=== PATIENT | female | born 1995 | race Caucasian/White ===

== ENCOUNTER 2017-02-28 11:25 | Emergency (ER) | payer OTHER ==
[~2017-02-28] VITALS: Ht 152.4 cm; Wt 58.0 kg
[2017-02-28 11:48] VITALS: Ht 152.4 cm; Wt 58.0 kg
[2017-02-28 14:58] VITALS: BP 129/85
== END 2017-02-28 14:58 | disposition home or self-care (01) ==
LOC: ED 11:25
DX: H66.91 Otitis media, unspecified, right ear (principal); J02.9 Acute pharyngitis, unspecified; J45.909 Unspecified asthma, uncomplicated

== ENCOUNTER 2017-09-17 12:16 | Emergency (ER) | payer OTHER ==
[~2017-09-17] VITALS: Ht 152.4 cm; Wt 60.3 kg
[2017-09-17 12:56] VITALS: Ht 152.4 cm; Wt 60.3 kg
[2017-09-17 14:34] LABS: microscopic required? YES; urine erythrocyte NEGATIVE (NEGATIVE)
[2017-09-17 15:27] VITALS: BP 109/72
== END 2017-09-17 15:27 | disposition home or self-care (01) ==
LOC: ED 12:16
PROVIDERS: Emergency Medicine
DX: R11.10 Vomiting, unspecified (principal); R19.7 Diarrhea, unspecified; N39.0 Urinary tract infection, site not specified; J45.909 Unspecified asthma, uncomplicated
CPT/HCPCS: Q0162

== ENCOUNTER 2017-10-03 09:09 | Emergency (ER) | payer OTHER ==
[~2017-10-03] VITALS: Ht 152.4 cm; Wt 58.1 kg
[2017-10-03 09:32] VITALS: BP 117/79; Ht 152.4 cm; Wt 58.1 kg
== END 2017-10-03 11:10 | disposition home or self-care (01) ==
LOC: ED 09:09
DX: B34.9 Viral infection, unspecified (principal); J45.909 Unspecified asthma, uncomplicated
CPT/HCPCS: J7620

== ENCOUNTER 2017-10-18 19:22 | Emergency (ER) | payer OTHER ==
[~2017-10-18] VITALS: Ht 152.4 cm; Wt 59.0 kg
[2017-10-18 19:30] VITALS: Ht 152.4 cm; Wt 59.0 kg
[2017-10-18 20:01] LABS: UA SPECIFIC GRAVITY 1.025 (1.005-1.035); microscopic required? YES; urine erythrocyte 3+ (NEGATIVE)
[2017-10-19 00:39] VITALS: BP 110/64
== END 2017-10-19 00:39 | disposition home or self-care (01) ==
LOC: ED 19:22
PROVIDERS: Specialist
DX: N30.01 Acute cystitis with hematuria (principal); J45.909 Unspecified asthma, uncomplicated
CPT/HCPCS: J1885; J2270; J2405; Q0092

== ENCOUNTER 2017-11-23 11:50 | Emergency (ER) | payer OTHER ==
[~2017-11-23] VITALS: Ht 152.4 cm; Wt 57.2 kg
[2017-11-23 11:56] VITALS: Ht 152.4 cm; Wt 57.2 kg
[2017-11-23 13:43] VITALS: BP 120/79
== END 2017-11-23 13:43 | disposition home or self-care (01) ==
LOC: ED 11:50
DX: R51 Headache (principal); R11.2 Nausea with vomiting, unspecified; J45.909 Unspecified asthma, uncomplicated
CPT/HCPCS: J1100; J1885; J2270; J2765; J7030

== ENCOUNTER 2017-12-16 17:21 | Emergency (ER) | payer OTHER ==
[2017-12-16 17:24] VITALS: Ht 152.4 cm
[2017-12-16 18:22] VITALS: BP 116/70
== END 2017-12-16 18:22 | disposition home or self-care (01) ==
LOC: ED 17:21
DX: J03.90 Acute tonsillitis, unspecified (principal); A38.9 Scarlet fever, uncomplicated; J45.909 Unspecified asthma, uncomplicated
CPT/HCPCS: J0696; J1100; J2001

== ENCOUNTER 2018-02-07 20:04 | Emergency (ER) | payer MEDICAID ==
[2018-02-07 22:19] VITALS: BP 103/78
== END 2018-02-07 22:19 | disposition home or self-care (01) ==
LOC: ED 20:04
DX: R05 Cough (principal); J45.909 Unspecified asthma, uncomplicated
CPT/HCPCS: J7512; J7613

== ENCOUNTER 2018-03-02 11:07 | Emergency (ER) | payer MEDICAID ==
[~2018-03-02] VITALS: Ht 162.6 cm; Wt 58.5 kg
[2018-03-02 11:26] VITALS: BP 113/67; Ht 162.6 cm; Wt 58.5 kg
== END 2018-03-02 13:23 | disposition home or self-care (01) ==
LOC: ED 11:07
DX: M54.5 Low back pain (principal); J45.909 Unspecified asthma, uncomplicated; R30.9 Painful micturition, unspecified

== ENCOUNTER 2018-03-26 12:35 | Emergency (ER) | payer MEDICAID ==
[~2018-03-26] VITALS: Ht 152.4 cm; Wt 59.4 kg
[2018-03-26 12:58] VITALS: BP 111/73; Ht 152.4 cm; Wt 59.4 kg
== END 2018-03-26 14:51 | disposition left against medical advice (07) ==
LOC: ED 12:35
DX: Z53.21 Procedure and treatment not carried out due to patient leaving prior to being seen by health care provider (principal)

== ENCOUNTER 2019-01-22 20:40 | Emergency (ER) | payer MEDICAID ==
[~2019-01-22] VITALS: Ht 160 cm; Wt 61.7 kg
[2019-01-22 20:45] VITALS: BP 132/82; Ht 160 cm; Wt 61.7 kg
== END 2019-01-22 21:55 | disposition home or self-care (01) ==
LOC: ED 20:40
DX: J20.8 Acute bronchitis due to other specified organisms (principal); J45.909 Unspecified asthma, uncomplicated
CPT/HCPCS: J2920

== ENCOUNTER 2019-02-01 13:18 | Emergency (ER) | payer MEDICAID ==
[~2019-02-01] VITALS: Ht 152.4 cm; Wt 62.6 kg
[2019-02-01 13:24] VITALS: Ht 152.4 cm; Wt 62.6 kg
[2019-02-01 14:22] VITALS: BP 114/69
== END 2019-02-01 14:22 | disposition home or self-care (01) ==
LOC: ED 13:18
DX: J40 Bronchitis, not specified as acute or chronic (principal); Z98.890 Other specified postprocedural states
CPT/HCPCS: J7512